=== PATIENT | male | born 1940 | race African-American/Black ===

== ENCOUNTER 2016-05-03 15:27 | Inpatient (IN) | payer OTHER ==
[~2016-05-03] VITALS: Ht 182.9 cm; Wt 65.6 kg
--- NOTE | ~2016-05-03 | HC ---
[facility] [place] [address] CONSULTATION Name: UBALDO ZAZUETA Room #: 411-P [facility] M.R.#: [id number] Admission: 05/03/16 Attend Phys: Roberth Chavarria DO Discharge: Date of : 40 Report #: [id number] THIS REPORT FOR: //name// CC: Roberth Cm DATE OF SERVICE: 05/04/2016 REFERRING PROVIDER: Roberth Chavarria DO REASON FOR CONSULT: Abdominal pain and nausea. HISTORY OF PRESENT ILLNESS: The patient is a 75-year-old -[place]ian male who has been admitted for epigastric abdominal pain with nausea and vomiting. The patient has had an episode similar to this approximately 3 years ago where he was diagnosed with colitis, which improved with antibiotics. The patient presented to the emergency room last evening where he underwent evaluation with laboratories and a CT scan of the abdomen and pelvis. The patient's labs showed a very low level leukocytosis with a white blood cell count of 12.6 thousand and a minimal left shift with 9% bands, his creatinine was 1.2, his liver function enzymes were normal as well as his lipase, but his CT scan of the abdomen and pelvis showed only diverticulosis without diverticulitis, no small-bowel obstruction, no inflammatory process throughout the abdominal region whatsoever; however, they did see a small linear metallic foreign body in the distal small bowel of uncertain etiology. The patient has since been admitted for his abdominal pain and nausea and I have been asked to evaluate. Currently, the patient states he feels markedly improved this morning with antiemetics and IV fluid rehydration and has really no abdominal pain at this time. PAST MEDICAL HISTORY: Hypertension, type 2 diabetes mellitus, chronic low back pain, prior diverticulitis in the setting of longstanding diverticulosis. HOME MEDICATIONS: Latanoprost eyedrops, hydrochlorothiazide, Metamucil, amlodipine, benazepril, metformin, Crestor, and Flonase. ALLERGIES: Are to ASPIRIN, AZITHROMYCIN, CODEINE, DOXYCYCLINE and SIMVASTATIN. SOCIAL HISTORY: The patient does not utilize alcohol, tobacco or illicit drugs. FAMILY HISTORY: Reviewed and noncontributory. REVIEW OF SYSTEMS: GENERAL: The patient denies nocturnal fevers or chills. HEENT: No change in vision, change in hearing. NECK: No swelling or difficulty swallowing. HEART: No chest pain or palpitations. [address] [address] CONSULTATION Name: UBALDO ZAZUETA Room #: 411-P [facility] Sally Villasenor#: [id number] Admission: 05/03/16 Attend Phys: Roberth Chavarria DO Discharge: Date of : 40 Report #: [id number] LUNGS: No cough or shortness of breath. ABDOMEN: Abdominal pain with nausea and vomiting. GENITOURINARY: No dysuria or hematuria. ENDOCRINE: No polyuria, polydipsia. HEMATOLOGIC: No history of bleeding or easy bruising. EXTREMITIES: No history of weakness or limited range of motion. NEUROLOGIC: No history of syncope or near syncopal episodes. SKIN AND INTEGUMENT: No history of abnormal lesions or moles. PSYCHIATRIC: No history of anxiety or depression. PHYSICAL EXAMINATION: VITAL SIGNS: Temperature 99.1, pulse 73, respirations 16, blood pressure 111/63. He stands 6 feet 1 inches tall and weighs 144 pounds. GENERAL: Alert and oriented, in no acute distress. HEENT: Normocephalic, atraumatic. Pupils equal, round, reactive to light. NECK: Supple, without lymphadenopathy. Trachea midline. HEART: Regular rate and rhythm. LUNGS: Clear to auscultation bilaterally. ABDOMEN: Soft, nondistended, very minimal epigastric discomfort with deep palpation, but no guarding, rebound or peritoneal signs or symptoms. He has normal bowel sounds. GENITOURINARY: Normal external male genitalia. EXTREMITIES: No clubbing, cyanosis or edema. NEUROLOGIC: Cranial nerves 2-12 are grossly intact. PSYCHIATRIC: Normal mood and affect. SKIN AND INTEGUMENT: No abnormal lesions or moles. LABORATORY AND X-RAY DATA: CBC shows a white blood cell count of 8.5 thousand, hemoglobin 13.5, platelets 156,000. His white blood cell count has normalized, but he has been placed on empiric antibiotics since admission by the primary care service. The patient's creatinine is 1.0. Liver function enzymes are normal. Lipase is normal at 220. Procalcitonin normal at 0.2. Lactic acid normal at 1.2. Urinalysis negative. CT scan of the abdomen and pelvis was reviewed in detail and shows linear metallic foreign body measuring 1.5 x 0.35 cm in dimension in the distal small bowel in the right lower quadrant. There is no inflammatory findings. No free air. This is of unknown etiology and pertinence. The patient has no free fluid, free air or inflammation anywhere in the abdominal cavity on CT scan. He does have diverticulosis. ASSESSMENT AND PLAN: A 75-year-old -[place]ian male with epigastric abdominal pain, nausea and vomiting that has subsided with IV fluid rehydration and antiemetics as well as a GI cocktail. The patient has been placed on empiric antibiotics for possible diverticulitis in the setting of longstanding diverticulosis as per a similar episode approximately 3 years ago. I will obtain an ultrasound of the abdomen to evaluate his gallbladder further and if that should show any abnormality. He may necessitate a PIPIDA scan as well or [facility] [address] [place] [address] CONSULTATION Name: UBALDO ZAZUETA Room #: 411-P [facility] MChanceRChance#: [id number] Admission: 05/03/16 Attend Phys: Roberth Chavarria DO Discharge: Date of : 40 Report #: [id number] proceeding to the operating room for laparoscopic cholecystectomy if he also has acute cholecystitis superimposed. As for the metallic foreign body this is of unknown significance, but does not appear to be causing any inflammatory process at this time and certainly no perforation has occurred by imaging and lab workup when correlated with the physical exam. I recommend continuation of observation for that at this time. I sincerely appreciate this consult. I will follow closely and leave any further recommendations in the patient's chart as appropriate. <ELECTRONICALLY SIGNED> By: Ethel Bar MD, FACS 05/05/16 0757 1302 1735 Ethel Bar MD, FACS /nt
--- NOTE | ~2016-05-03 | S ---
[facility] [place] [address] SURGICAL PATH RPT PROCEDURE Name: CARL KING Room #: 411-P ADM IN M.R.#: [id number] Admission: 05/06/16 Date of : 40 Discharge: Report #: [id number] Path Case #: [id number] PATHOLOGY REPORT COLLECTION DATE: 05/06/2016 RECEIVED DATE: 05/06/2016 SUBMITTING PHYS: Dr. Primitivo Lawler OTHER PHYS: Dr. Matheus Chavarria SPECIMEN(S) RECEIVED: A.Gallbladder * * * * * * * * * * * * FINAL DIAGNOSIS: "Gallbladder", cholecystectomy: - Chronic cholecystitis. (CLW:jj; d/t: 05/07/2016) PATHOLOGIST: Zaynab Gómez M.D. REPORT ELECTRONICALLY SIGNED BY: Zaynab Gómez M.D. DATE/TIME: 05/07/2016 16:32 * * * * * * * * * * * * GROSS PATHOLOGY: Received in formalin labeled "Carl King, gallbladder," is a 6.4 x 2.5 x 1.0 cm, previously opened gallbladder with pink-huynh serosal surfaces. Opening the gallbladder reveals a velvety, pink-huynh mucosa and an average wall thickness of 0.1 cm. Calculi are not present and no masses are noted grossly. Industrial Engineer sections from the body and fundus are submitted along with the proximal margin in cassette A1. (CAA; 05/06/2016) CLINICAL HISTORY: Biliary dyskinesia, chronic cholecystitis INITIAL CPT CODE(S): A; 59075 Professional services performed by [facility] at [facility] [address], [place] [address] Technical services performed by [facility] at [address] [place] [address], [facility] [address] [address]. [facility] [address] [place] [address] SURGICAL PATH RPT PROCEDURE Name: CARL KING Room #: 411-P ADM IN M.R.#: [id number] Admission: 05/06/16 Date of : 40 Discharge: Report #: [id number] Path Case #: [id number] [facility] [address] [address] PHONE: [phone] DIRECTOR: Guido Singletary M.D. * * * END OF REPORT * * *
--- NOTE | ~2016-05-03 | O ---
[facility] [place] [address] OPERATIVE REPORT Name: UBALDO ZAZUETA Room #: 411-P [facility] M.R.#: [id number] Admission: 05/06/16 Attend Phys: Roberth Chavarria DO Discharge: 05/07/16 Date of : 40 Report #: [id number] THIS REPORT FOR: //name// CC: Roberth Cm DATE OF SERVICE: 05/06/2016 PREOPERATIVE DIAGNOSIS: Biliary dyskinesia with chronic cholecystitis. POSTOPERATIVE DIAGNOSIS: Biliary dyskinesia with chronic cholecystitis. OPERATIVE PROCEDURE: Laparoscopic cholecystectomy with intraoperative cholangiogram. SURGEON: Primitivo Lawler MD SUPERVISOR ELECTRIC MOTOR TESTING: Faith Emery MS4 INDICATION: A 75-year-old male with second episode of severe mid epigastric discomfort associated with pain radiating to back and also associated with nausea and vomiting. The patient's sonogram is negative for stones. The ejection fraction was 53%, but this is an exact replica and reproduction of symptoms previously. OPERATIVE PROCEDURE: The patient and his had a thorough discussion of the procedure, benefits and risks. He gave informed consent to proceed. He was on antibiotics therapeutically. He was brought to the operating room suite and had satisfactory induction of general endotracheal anesthesia. The patient's entire abdomen was prepped and draped in usual sterile procedure with DuraPrep solution. After draping was completed, an appropriate timeout was then performed. A 0.5% plain Naropin was utilized at all trocar sites, 30 mL was utilized during the procedure. Initially, an open cutdown at the inferior infraumbilical position was performed. Fingertip introduction to the peritoneal cavity was performed. The Sylvia trocar was introduced. The balloon inflated. Pneumoperitoneum was established. The upper midline trocars 5 mm placed at the midline and to the abdominal wall were utilized under direct vision. The gallbladder was grasped and retracted cephalad and laterally. Photographs were taken and made part of the medical record. There was significant fat inferior aspect of the gallbladder. This was taken down with sharp dissection and the Sonicision. The cystic duct triangle was clearly delineated. The cystic duct was milked in a retrograde manner. The cystic artery was identified. It was doubly clipped and divided with the Sonicision. A cystotomy was performed. The taut catheter was then inserted into the cystic duct. An intraoperative cholangiogram was performed demonstrating free flow of contrast into the duodenum. There was also contrast filling the hepatic bifurcation without [facility] [address] [place] [address] OPERATIVE REPORT Name: UBALDO ZAZUETA Room #: 411-P DIS IN M.R.#: [id number] Admission: 05/06/16 Attend Phys: Roberth Chavarria DO Discharge: 05/07/16 Date of : 40 Report #: [id number] difficulty. The taut catheter was removed and the cystic duct was then triply ligated. The cystic duct was divided with the Sonicision. The gallbladder was dissected from the fossa without difficulty, was placed into an Endobag and removed from peritoneal cavity. The infraumbilical port site then had 0 PDS suture placed in a [id number]-ti-[id number] fashion under direct vision. The site of the hepatic gallbladder fossa was evaluated. This was cauterized. Chidi was sprayed into the gallbladder fossa. Bile and blood had been previously aspirated and irrigated. The 5 mm trocar ports were then removed under direct vision. The pneumoperitoneum was deflated. The 0 PDS suture was ligated in place. Skin margins were then approximated with subcuticular 4-0 Monocryl. Dermabond was applied. Estimated blood loss was less than 10 mL. Sponge and needle counts were correct prior to closure of the wounds. The patient returned to recovery room in stable and satisfactory condition. <ELECTRONICALLY SIGNED> By: Primitivo Lawler MD, FACS 05/09/16 1143 1744 1830 Primitivo Lawler MD, FACS /nt
--- NOTE | ~2016-05-03 | EKG ---
[address] [place] [address] ELECTROCARDIOGRAM REPORT Name: UBALDO ZAZUETA Room #: 411-P [facility]..#: [id number] Admission: 05/03/16 Attend Phys: Freddy Skelton MD Discharge: Date of : 40 Report #: [id number] THIS REPORT FOR: //name// [facility] ED Test Date: 2016-05-03 Test Time: 16:14:29 Pat Name: UBALDO ZAZUETA Department: Room: 411 Gender: M Chapter Relations Administrator: [id number] : 1940 Requested By: Johnny Sanders Order Number: [id number] MD: Mike Barr Measurements Intervals [place] Rate: 94 P: 72 NV: 181 QRS: -45 QRSD: 108 T: 78 QT: 379 QTc: 474 Interpretive Statements Sinus rhythm LAD, consider left anterior fascicular block Anteroseptal infarct, old No previous ECG available for comparison Electronically Signed On 05-04-2016 7:58:42 MEDICAL SCIENTIST by Mike Barr [email or web address] <ELECTRONICALLY SIGNED> By: Mike Barr MD, [facility] 05/04/16 0758 1614 13 Mike Barr MD, FAC /EPI
[~2016-05-03 15:27] MED LIST: ANTIVERT25 MG PO; BUTALB-APAP-CA1 EACH PO; CIPRO500 MG PO; CRESTOR5 MG PO; FLAGYL500 MG PO; FLONASE 0.05%50 MCG NASAL; GLUCOPHAGE500 MG PO; HCTZ; HYDROCHLOROTHIA25 M2 PO; HYDROCHLOROTHIA50 MG PO; LOTREL 10-20 M1 EACH PO; MECLIZINE HCL25 M1 PO; METAMUCIL425 GM; TRAVATAN Z5 ML OPHTHALMIC; TYLENOL325 MG PO; VALIUM2 MG PO; ZEGERID 20 MG1 EACH PO; ZOFRAN4 MG PO
[2016-05-03 15:28] VITALS: BP 125/73
[2016-05-03] MEDS ORDERED: METAMUCIL PAC1 UDPKT PO (16:28)
[2016-05-03] MEDS ORDERED: XALATAN2.5 ML OPHTHALMIC (16:29)
[2016-05-03 16:37] LABS: HEMATOCRIT 43.5 % (42.0-52.0); HEMOGLOBIN 14.6 gm/dL (14.0-18.0); MCH 30.1 pg (26.0-34.0); MCHC 33.5 g/dL (28.0-37.0); MCV 89.6 fL (80.0-100.0); PLATELET COUNT 178 thou/uL (150-400); RBC 4.86 mil/uL (4.50-6.00); RDW 13.5 % (10.5-14.5); WBC 12.6 thou/uL (4.0-11.0)
[2016-05-03 16:40] LABS: MANUAL DIFF YES
[2016-05-03 16:46] LABS: CALCIUM 9.2 mg/dL (8.5-10.1); CREATININE 1.2 mg/dL (0.6-1.3); POTASSIUM 3.6 mmol/L (3.5-5.1)
[2016-05-03 16:52] LABS: ALBUMIN 4.2 g/dL (3.4-5.0); DIRECT BILIRUBIN 0.1 mg/dL (<0.1-0.3); TOTAL BILIRUBIN 0.6 mg/dL (<0.1-1.0); TOTAL PROTEIN 7.5 g/dL (6.4-8.2)
[2016-05-03 17:21] LABS: ABSOLUTE NEUTROPHILS 10.8 thou/uL (1.4-8.2); TOTAL CELL COUNT 100
[2016-05-03 19:23] LABS: URINE BILIRUBIN NEGATIVE (Negative); URINE BLOOD NEGATIVE (Negative); URINE COLOR YELLOW; URINE GLUCOSE-RANDOM* NEGATIVE (Negative); URINE KETONES TRACE (Negative); URINE NITRITE NEGATIVE (Negative); URINE PROTEIN (DIPSTICK) NEGATIVE (Negative); URINE UROBILINOGEN 0.2 E.U./dl (0.2-1.0)
[2016-05-03 19:48] VITALS: BP 136/78
[2016-05-03 19:56] VITALS: BP 134/67
[2016-05-03 23:37] VITALS: BP 119/67
[2016-05-04 04:05] VITALS: BP 117/69
[2016-05-04 05:23] LABS: HEMATOCRIT 40.5 % (42.0-52.0); HEMOGLOBIN 13.5 gm/dL (14.0-18.0); MCHC 33.4 g/dL (28.0-37.0); RBC 4.5 mil/uL (4.50-6.00); RDW 13.4 % (10.5-14.5); WBC 8.5 thou/uL (4.0-11.0)
[2016-05-04 06:44] LABS: ALBUMIN 3.2 g/dL (3.4-5.0); CALCIUM 8.3 mg/dL (8.5-10.1); TOTAL BILIRUBIN 0.4 mg/dL (<0.1-1.0); TOTAL PROTEIN 6.3 g/dL (6.4-8.2)
[2016-05-04 08:59] VITALS: BP 111/63
[2016-05-04 12:50] VITALS: BP 114/72
[2016-05-04 20:00] VITALS: BP 126/76
[2016-05-04 22:08] LABS: GLYCOHEMOGLOBIN (HGB A1C) 5.3 % (4.8-5.6)
[2016-05-05] VITALS: BP 112/68
[2016-05-05 05:29] LABS: ABSOLUTE NEUTROPHILS 2.8 thou/uL (1.4-8.2); BASOPHILS 0.3 % (0.0-2.0); EOSINOPHILS 2.8 % (0.0-3.0); HEMATOCRIT 41.5 % (42.0-52.0); HEMOGLOBIN 13.8 gm/dL (14.0-18.0); LYMPHOCYTES 17.8 % (24.0-44.0); MCH 30.1 pg (26.0-34.0); MCHC 33.4 g/dL (28.0-37.0); MCV 90.4 fL (80.0-100.0); MONOCYTES 10.1 % (1.0-8.0); PLATELET COUNT 147 thou/uL (150-400); RDW 13.7 % (10.5-14.5); WBC 4.1 thou/uL (4.0-11.0)
[2016-05-05 05:33] LABS: MANUAL DIFF NO
[2016-05-05 05:35] LABS: CREATININE 1.1 mg/dL (0.6-1.3); POTASSIUM 3.8 mmol/L (3.5-5.1)
[2016-05-05 05:36] LABS: CALCIUM 8.3 mg/dL (8.5-10.1)
[2016-05-05 07:53] VITALS: BP 125/66
[2016-05-05 15:59] VITALS: BP 146/78
[2016-05-05 16:01] VITALS: BP 107/72
[2016-05-05 20:00] VITALS: BP 128/74
[2016-05-06 04:30] VITALS: BP 112/62
[2016-05-06 06:55] LABS: ABSOLUTE NEUTROPHILS 2.7 thou/uL (1.4-8.2); BASOPHILS 0.2 % (0.0-2.0); EOSINOPHILS 5.2 % (0.0-3.0); HEMATOCRIT 37.6 % (42.0-52.0); HEMOGLOBIN 12.8 gm/dL (14.0-18.0); LYMPHOCYTES 20.9 % (24.0-44.0); MCH 30.4 pg (26.0-34.0); MCHC 33.9 g/dL (28.0-37.0); MCV 89.6 fL (80.0-100.0); MONOCYTES 8.7 % (1.0-8.0); PLATELET COUNT 142 thou/uL (150-400); RDW 13.8 % (10.5-14.5); WBC 4.1 thou/uL (4.0-11.0)
[2016-05-06 07:05] LABS: MANUAL DIFF NO
[2016-05-06 07:08] LABS: INR 1.1; PROTIME 11.2 Seconds (9.3-11.4)
[2016-05-06 07:10] LABS: CALCIUM 7.8 mg/dL (8.5-10.1); CREATININE 1.1 mg/dL (0.6-1.3); POTASSIUM 3.7 mmol/L (3.5-5.1)
[2016-05-06 10:25] VITALS: BP 134/75
[2016-05-06 12:45] VITALS: BP 148/87
[2016-05-06 16:30] VITALS: BP 133/77
[2016-05-07 01:10] VITALS: BP 132/76; BP 172/84
[2016-05-07 04:20] VITALS: BP 124/73; BP 170/96
[2016-05-07 05:24] LABS: HEMATOCRIT 37.4 % (42.0-52.0); HEMOGLOBIN 12.5 gm/dL (14.0-18.0); MCH 30.3 pg (26.0-34.0); MCHC 33.4 g/dL (28.0-37.0); MCV 90.5 fL (80.0-100.0); RBC 4.13 mil/uL (4.50-6.00); RDW 13.6 % (10.5-14.5); WBC 5.1 thou/uL (4.0-11.0)
[2016-05-07 05:40] LABS: CALCIUM 7.9 mg/dL (8.5-10.1); CREATININE 1.2 mg/dL (0.6-1.3); POTASSIUM 4.2 mmol/L (3.5-5.1)
[2016-05-07 07:53] VITALS: BP 126/68
[2016-05-07 12:53] VITALS: BP 126/68
[2016-05-07 16:00] VITALS: BP 134/65
[2016-05-07 17:44] VITALS: BP 126/68
== END 2016-05-07 16:52 | disposition home or self-care (01) | DRG 418 ==
LOC: ER 15:27 → 4N 19:09 → EROBS 19:09 → 4N 19:46
PROVIDERS: Family Medicine; Nurse Practitioner; Surgery
PROC: BF121ZZ Fluoroscopy of Gallbladder using Low Osmolar Contrast (ICD-10-PCS; principal; 2016-05-06)
PROC: 0FT44ZZ Resection of Gallbladder, Percutaneous Endoscopic Approach (ICD-10-PCS; principal; 2016-05-06)
DX: K82.8 Other specified diseases of gallbladder (principal); Z68.1 Body mass index [BMI] 19.9 or less, adult; R10.9 Unspecified abdominal pain; K81.1 Chronic cholecystitis; E11.9 Type 2 diabetes mellitus without complications; G89.29 Other chronic pain; M54.5 Low back pain; I11.0 Hypertensive heart disease with heart failure; R63.4 Abnormal weight loss; K57.90 Diverticulosis of intestine, part unspecified, without perforation or abscess without bleeding; Z79.899 Other long term (current) drug therapy; Z98.42 Cataract extraction status, left eye; Z98.41 Cataract extraction status, right eye; Z88.6 Allergy status to analgesic agent; Z88.1 Allergy status to other antibiotic agents
CPT/HCPCS: 10091; 50010; 50101; 50249; 50331; 50411; 50555; 50900; 50962; 51489; 51975; 52265; 52266; 52287; 53307; 53314; 54022; 54118; 55245; 55317; 56462; 56525; 56526; 62110; 62900; 70005